=== PATIENT | male | born 1950 | race Caucasian/White ===

== ENCOUNTER 2016-07-11 08:49 | Day surgery (SDC) | payer MEDICARE, OTHER ==
[2015-09-18 22:38] VITALS: BP 158/88
[~2016-07-11 08:49] MED LIST: LACTATED RINGERS 1,000 ML IV.SOLN IV ONE; LIDOCAINE HCL/PF 2% 100 MG/5 ML VIAL IJ ONE; PROPOFOL 200 MG/20 ML VIAL IV ONE; SALINE FLUSH 10 ML DISP.SYRIN IVF ONE
--- NOTE | 2016-07-11 15:11 | Operative Note ---
SURGEON: Rai Julian MD ANESTHESIA: MAC anesthesia. ESTIMATED BLOOD LOSS: None. COMPLICATIONS: None. PREOPERATIVE DIAGNOSIS: Diarrhea. POSTOPERATIVE DIAGNOSIS: Severe diverticular disease with stricture. PROCEDURE PERFORMED: Colonoscopy. FINDINGS: Severe diverticular disease with sigmoid stricture and could not pass through with the scope. DESCRIPTION OF PROCEDURE: Patient was brought to the endoscopy suite and placed in the left lateral decubitus position. A rectal exam was performed which was normal. The colonoscope was inserted. He had severe diverticular disease in the sigmoid colon. Despite using a pediatric scope, we could not pass the scope through a very strictured area. There was no evidence of acute inflammation. The colonoscope was then removed. RECOMMENDATIONS: We will schedule an air contrast barium enema to further evaluate this area. MTDD
== END 2016-07-11 08:50 ==
LOC: OPSURG 08:49
PROVIDERS: ATTEND Colon & Rectal Surgery
DX: K57.30 Diverticulosis of large intestine without perforation or abscess without bleeding (principal); R19.7 Diarrhea, unspecified
CPT/HCPCS: 45330; J2001; J2704; J7120; S1016

== ENCOUNTER 2017-08-14 10:01 | Outpatient (CLI) | payer MEDICARE, OTHER ==
[2015-09-18 22:38] VITALS: BP 158/88
[2017-08-14 12:13] LABS: eGFR (African) > 60; eGFR (Non-African) > 60
== END 2017-08-14 10:10 ==
LOC: LAB 10:01
PROVIDERS: ATTEND Family Medicine
DX: Z00.00 Encounter for general adult medical examination without abnormal findings (principal)
CPT/HCPCS: 36415; 80053; 80061; 83036

== ENCOUNTER 2019-04-15 09:23 | Outpatient (CLI) | payer MEDICARE, OTHER ==
[2015-09-18 22:38] VITALS: BP 158/88
--- NOTE | 2019-04-22 10:01 | CONSULTATION REPORT ---
DATE OF VISIT: 04/15/2019 (New Patient) SUBJECTIVE: Catrachito is a 68-year-old male who states he has a glucose intolerance but has never tested positive for diabetes mellitus. He presents today for a repeat wound on his right medial ankle just near the medial malleolus, but not over the medial malleolus. The patient has a history of a wound here years ago for which he underwent aggressive wound care and compression wraps and got that wound healed. Just about one and a half weeks ago he was doing lot of walking in a specific pair of boots that he feels rubbed the area until it opened up. He tried taking care of it over the last week and a half or so on his own, but he worries that it is not improving at all. He does not admit to any fevers, chills, nausea, vomiting, shortness of breath or chest pain. He does admit to having varicose veins. OBJECTIVE: Vitals: Temperature 97.9 degrees Fahrenheit, heart rate 65, respiration rate 16, blood pressure 127/75. O2 saturation is 97% on room air. Vascular: Palpable DP and 2+ PT pulses, right foot. Capillary refill time is less than 3 seconds to the toes of the right foot. There is no edema noted, right foot or ankle. There is actually some mild edema at the varicose veins that are distended at the medial right ankle. Dermatologic: There is an open lesion with a fairly dry, fibrous base with an approximate measurement today of 0.8 x 0.9 x 0.4 cm deep. There is mild pink irritation around the edge, but there are no signs of infection. There is no malodor or purulence or abnormal drainage noted. With debridement there is mild amount of bleeding noted controlled with pressure. There are significant varicose veins in the foot with some that are essentially tortuous right near the wound area. There is a very small soft area that almost feels like a herniation of fat through the fascia underneath just proximal to the wound that has some pain at that area with palpation. There are no other skin abnormalities noted. Musculoskeletal: There is mild pain on palpation and with debridement at the site. There is also mild pain on palpation at the small round, what almost feels like a herniated area of tissue just proximal to that site. This may just be part of a tortuous varicose vein. There are no other gross abnormalities noted, right foot or ankle. Neurologic: Light touch sensation is diminished to the toes, right foot. The patient did admit to some numbness in the feet, but I do not have a Lacon- Rosa M monofilament to test this at this time. ASSESSMENT AND PLAN: 1. Venous insufficiency ulcer, right medial ankle. 2. Venous insufficiency, right lower extremity/varicose veins. 3. Possible peripheral neuropathy in the right lower extremity at the toes. PROCEDURE #1: Sharp debridement of the right lower extremity medial ankle venous insufficiency ulcer was performed with a curette down to and including the subcutaneous tissue layer less than 20 sq cm today. Bleeding was controlled with pressure. Dressings were applied after rinsing it with Santyl, Adaptic, 4x4 gauze and Kerlix. PROCEDURE #2: Four layer compression wrap was applied to the right lower extremity to help with control of edema at this area. The patient tolerated this well. The patient has no further questions or concerns and we will plan on seeing him in one week for continued wound care. He knows to keep the dressings clean, dry and intact. Sharmin AlvarengaP.M./[employer] [id number] R: 04/21/19 /mab MTDD
== END 2019-04-15 09:53 ==
LOC: POD 09:23
PROVIDERS: ATTEND Podiatrist Foot & Ankle Surgery
DX: I87.2 Venous insufficiency (chronic) (peripheral) (principal); L97.519 Non-pressure chronic ulcer of other part of right foot with unspecified severity
CPT/HCPCS: 11042; 29581; 99213; G0463; A4554

== ENCOUNTER 2019-04-22 09:21 | Outpatient (CLI) | payer MEDICARE, OTHER ==
[2015-09-18 22:38] VITALS: BP 158/88
--- NOTE | 2019-04-27 15:05 | OP Clinic Progress Note ---
DATE OF VISIT: 04/22/2019 SUBJECTIVE: Catrachito is a 68-year-old male presenting to the clinic today for followup of a venous insufficiency ulcer of the right medial ankle. He does not have any complaints or problems at this time and is excited feeling that this is already improving since last week upon looking at the wound today. He most recently had a four-layer compression wrap applied after first applying Santyl and a normal dressing. The patient understands that we are debriding weekly at this time and doing Santyl in between to allow enzymatic debridement. He does not admit to any fevers, chills, nausea, vomiting, shortness of breath or chest pain and is very willing to do whatever needed to get this healed. OBJECTIVE: Vitals: Temperature 98.2 degrees Fahrenheit, heart rate 65, respiration rate 18, blood pressure 116/70. O2 saturation is 98% on room air. Vascular: 2+ DP and PT pulses, right foot. Capillary refill time is less than 3 seconds to the toes of the right foot. There is very mild edema noted in the right lower extremity. This is very well controlled with the compression, however. Dermatologic: The right medial ankle just above the medial malleolus has a small lesion still present with a little bit of fibrous tissue and slough noted, which is debrided to a little bit more granular base, 50-50 with fibrogranular material. There was no erythema or purulence or malodor or abnormal drainage noted. There was slight purple discoloration around the wound from healing. This appears smaller than last time, it is measuring today at 0.7 x 0.8 x 0.2 cm deep. This is improved from last week where it measured 0.8 x 0.9 x 0.4 cm deep. This is promising that this is already improving for the patient. There are no other signs of infection or erythema or warmth noted. There are no other skin abnormalities or concerns. It should be noted that there are varicose veins noted with prominence in this area. Musculoskeletal: There is moderate pain with debridement at this time. There were no other gross abnormalities noted of concern of right lower extremity. Neurologic: Light touch sensation is intact to the toes, right foot. ASSESSMENT AND PLAN: 1. Venous insufficiency ulcer, right medial ankle. 2. Venous insufficiency, right lower extremity. PROCEDURE #1: Sharp debridement less than 20 sq cm down to and including the subcutaneous tissue layer was performed with the curette today. This was able to elicit some bleeding which was controlled with pressure. The site was rinsed with a copious amount of normal saline. It was dried and then dressings were applied consisting of Santyl, 4 x 4 gauze and Kerlix. The patient also had three layers of 4-inch NINI wrap applied to help with swelling beginning at the base of the toes to the distal knee of the right lower extremity. We will have the patient leave this clean, dry and intact and we will plan on having the patient have a nursing visit next week on Friday as well as the following week on Friday and then I will see him the week after on Friday or . They will continue using Santyl, 4 x 4 gauze, Kerlix and three layers of 4-inch NINI wrap at each of those visits while I am away. They are to send the patient to another provider or to the emergency room if there are any concerns or infections to get him on an antibiotic. The patient knows that I will not be here next week on Friday through the following entire next week and understands the plan for nursing visits in the meantime. The patient has no other questions. Addi Zavala D.P.M. /[employer] [id number] /mab MTDD
== END 2019-04-22 09:50 ==
LOC: POD 09:21
PROVIDERS: ATTEND Podiatrist Foot & Ankle Surgery
DX: I87.2 Venous insufficiency (chronic) (peripheral) (principal); L97.319 Non-pressure chronic ulcer of right ankle with unspecified severity
CPT/HCPCS: 11042; 99213; G0463; A4554

== ENCOUNTER 2019-04-28 08:38 | Outpatient (CLI) | payer MEDICARE, OTHER ==
[2015-09-18 22:38] VITALS: BP 158/88
== END 2019-04-28 09:05 ==
LOC: POD 08:38
PROVIDERS: ATTEND Podiatrist Foot & Ankle Surgery
DX: Z48.00 Encounter for change or removal of nonsurgical wound dressing (principal)
CPT/HCPCS: A4554

== ENCOUNTER 2019-05-05 08:59 | Outpatient (CLI) | payer MEDICARE, OTHER ==
[2015-09-18 22:38] VITALS: BP 158/88
== END 2019-05-05 09:39 ==
LOC: OUT 08:59
PROVIDERS: ATTEND Podiatrist Foot & Ankle Surgery
DX: Z48.00 Encounter for change or removal of nonsurgical wound dressing (principal)

== ENCOUNTER 2019-05-13 11:20 | Outpatient (CLI) | payer MEDICARE, OTHER ==
[2015-09-18 22:38] VITALS: BP 158/88
--- NOTE | 2019-05-14 09:44 | OP Clinic Progress Note ---
DATE OF VISIT: 05/13/2019 SUBJECTIVE: Catrachito is a 68-year-old male presenting to the clinic today for follow up of venous insufficiency ulcer on the right lower extremity just above the medial malleolus. The patient has been switched from NINI wraps to four- layer compression wrap at our most recent visit with the nurse I think and he states that he is tired of the wraps, especially the NINI wraps. He has been following instructions appropriately. He has never used any compression socks and he is interested in beginning using them if possible. He does not admit to any fevers, chills, nausea, vomiting, shortness of breath or chest pain. He believes that the pain is no longer there and he is happy with how good it looks. He states he is "tickled" at how good it looks. OBJECTIVE: Vitals: Temperature 97.6 degrees Fahrenheit, heart rate 67, respiration rate 16, blood pressure 120/71. O2 saturation is 97% on room air. Vascular: 2+ DP and PT pulses, right foot. Capillary refill time is less than 3 seconds to the toes of the right foot. There is very mild edema more so in the sense of enlarged varicose veins still noted. This is in the right and left lower legs. Dermatologic: There is a very stable eschar noted that does not need to be removed at this time. It appears that the skin is healing underneath this and the eschar should fall off on its own as long as it left alone and clean and dry. There are no signs of erythema or any sort of open lesion at all or any warmth or drainage or any signs of infection. Musculoskeletal: There is no pain with palpation at this time. There were no other gross abnormalities noted right lower extremity. Neurologic: Light touch sensation is intact to the toes, right foot. ASSESSMENT AND PLAN: 1. Venous insufficiency ulcer, right medial ankle. 2. Venous insufficiency, right lower extremity. There was no need for any procedures at this time. We placed a Band-Aid to cover the area and a 4-inch NINI wrap times one layer only. The patient was encouraged to keep the NINI wrap going at this time and his options were to continue using a 4-inch NINI wrap and keep this covered with a Band-Aid and keep it dry and let the scab fall off and make sure it has healed underneath before beginning to get it wet. He also has the option of us doing a 4-layer compression wrap or he can do no compression and see how it does. I prefer the NINI wrap or even compression stockings and the patient elects to go for the compression stockings to keep the fluid lessened in his leg. A prescription for 20 to 30 mmHg compression stockings was given to the patient to go fill at [facility] or wherever he sees fit. He is grateful for the prescription and will get started on this right away. He is to keep the scab covered with a Band-Aid and keep it dry until the scab falls off on its own and then at that time as long as it healed underneath he can continue compression stockings and getting it wet at that time. He is to return to the clinic in one and a half weeks on May 24 as we realized he cannot come in three weeks and I am gone in four weeks from now. We will see him in one and a half weeks to make sure it is healing appropriately and see if the scab has come off by then safely. Addi Zavala D.P.M./[employer]ut[employer] [id number] /mab MTDD
== END 2019-05-13 11:55 ==
LOC: POD 11:20
PROVIDERS: ATTEND Podiatrist Foot & Ankle Surgery
DX: I87.2 Venous insufficiency (chronic) (peripheral) (principal); L97.319 Non-pressure chronic ulcer of right ankle with unspecified severity
CPT/HCPCS: 99213; G0463; A4554